=== PATIENT | female | born 1985 | race Caucasian/White ===

== ENCOUNTER 2019-10-24 19:50 | Emergency (ER) | payer SELFPAY ==
[~2019-10-24] VITALS: Ht 144.7 cm; Wt 68.0 kg
[2019-10-24] MEDS ORDERED: AUGMENTIN 875-875 MG PO (21:12)
== END 2019-10-24 21:25 | disposition home or self-care (01) ==
LOC: ED 19:50
DX: J02.9 Acute pharyngitis, unspecified (principal)